=== PATIENT | male | born 1975 | race Asian ===

== ENCOUNTER 2023-11-02 09:58 | Day surgery (SDC) | payer OTHER ==
[~2023-11-02] VITALS: Ht 172.7 cm; Wt 68.0 kg
[2023-11-02] MEDS ORDERED: fentaNYL citrate 0.05 MG/ML VIAL ONE (10:15)
[2023-11-02] MEDS ORDERED: MIDAZOLAM 5 MG/5 ML VIAL ONE (10:15)
[2023-11-02] MEDS: fentaNYL citrate 0.05 MG/ML VIAL IVP ONE (12:10)
[2023-11-02] MEDS: MIDAZOLAM 2 MG/2 ML VIAL IVP ONE (12:11)
== END 2023-11-02 13:52 | disposition home or self-care (01) ==
LOC: MDS 09:58 → MMU 09:59 → MDS 13:52
PROVIDERS: ATTEND Internal Medicine Gastroenterology
DX: Z12.11 Encounter for screening for malignant neoplasm of colon (principal); K21.9 Gastro-esophageal reflux disease without esophagitis; K31.7 Polyp of stomach and duodenum; I10 Essential (primary) hypertension; E11.9 Type 2 diabetes mellitus without complications; E03.9 Hypothyroidism, unspecified; Z79.899 Other long term (current) drug therapy; Z98.890 Other specified postprocedural states
CPT/HCPCS: 43239; 45378; 82948; 88305; 88312; 88313; 88342; J2250; J3010